=== PATIENT | female | born 1975 | race Hispanic/Latino ===

== ENCOUNTER 2017-08-14 01:42 | Emergency (ER) | payer BC, OTHER ==
[2017-08-14] MEDS ORDERED: BUPIVACAINE/PF 0.5% 30ML VIAL ONE (01:50)
[2017-08-14] MEDS ORDERED: LIDOCAINE HCL 1% 20 ML VIAL ONE (01:51)
[2017-08-14] MEDS ORDERED: TETANUS/DIPHTHERIA TOXOID [ADULT] 0.5 ML VIAL IM ONE (02:01)
== END 2017-08-14 02:49 | disposition home or self-care (01) ==
LOC: EDH 01:42
DX: S61.215A Laceration without foreign body of left ring finger without damage to nail, initial encounter (principal); W23.0XXA Caught, crushed, jammed, or pinched between moving objects, initial encounter; Y93.89 Activity, other specified; Y92.69 Other specified industrial and construction area as the place of occurrence of the external cause; Y99.8 Other external cause status
CPT/HCPCS: 12044; 73130; 90471; 90714; 99284; J3490; 12034

== ENCOUNTER 2021-07-07 08:35 | Emergency (ER) | payer BC, OTHER ==
[~2021-07-07] VITALS: Ht 152.4 cm; Wt 106.6 kg
[2021-07-07] MEDS ORDERED: IBUP-2077 PO (10:01)
[2021-07-07 10:30] VITALS: BP 132/78
== END 2021-07-07 10:32 | disposition home or self-care (01) ==
LOC: EDH 08:35
DX: U07.1 COVID-19 (principal)
CPT/HCPCS: 87635; 87804 ×2; 99283; C9803